=== PATIENT | male | born 1945 | race American Indian/Alaskan Native ===

== ENCOUNTER 2023-03-16 16:44 | Observation (INO) | payer OTHER, SELFPAY ==
[2023-03-16] VITALS (10 sets, daily range): BP systolic 130–141; BP diastolic 72–85; PULSE 63–71; RESP 15–22; TEMP 36.4–36.9; O2SAT 98–100; BMI 25.8
--- NOTE | 2023-03-16 16:49 | DI.RAD.S_ITS ---
PROCEDURE: XR RIBS RT MIN 3V W CXR 1V INDICATIONS: fall with posterior rib pain TECHNIQUE: Two views of the right ribs were acquired, along with a single view chest. COMPARISON: None. FINDINGS: Surgical changes and devices: None. Bones and chest wall: Mild displacement of right posterior ribs seven and eight. No subcutaneous emphysema. Lungs and pleura: Minimal hazy opacity at the right lung base, likely overlying soft tissue. Possible trace pleural effusion. No visible pneumothorax. Left lung is clear. There is asymmetric right hemidiaphragm elevation, probably due to splinting. Mediastinum: Mediastinal contours appear normal. Heart size is normal. IMPRESSION: 1. Probable right posterior 7th and 8th rib fractures. 2. Trace right pleural effusion is questionable. Dictated by: Lennie Thompson M.D. on 03/16/2023 at 17:16 Approved by: Lennie Thompson M.D. on 03/16/2023 at 17:18
[2023-03-16] MEDS: HYDROCODONE/ACET 5/325 TABLET 2 TAB PO (16:54)
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
--- NOTE | 2023-03-16 17:37 | DI.CT.S_ITS ---
PROCEDURE: CT CHEST ABD PEL W CON INDICATIONS: Trauma, multiple rib fractures TECHNIQUE: After the administration of intravenous contrast, 5 mm thick sections acquired from the lung apices to the symphysis. 2.5 mm thick coronal and sagittal reformats were acquired. Additional 7 mm thick coronal maximum intensity projection (MIP) reformats acquired through the lungs. Optional 10-minute delayed imaging may be performed from the kidneys to the bladder. For radiation dose reduction, the following was used: automated exposure control, adjustment of mA and/or kV according to patient size. COMPARISON: None. FINDINGS: Image quality: Excellent. CHEST: Lungs: No pulmonary contusions or lacerations. No acute airspace opacities. No pneumothorax or hemothorax. Central and peripheral airways appear patent and normal in caliber. Mediastinum: No mediastinal hematomas. Heart size is normal. No pericardial effusion. Thoracic aorta and pulmonary arteries demonstrate normal size and enhancement. No mediastinal or hilar adenopathy. Esophagus is normal in caliber. Small hiatal hernia. Chest wall: Right posterior 7th and 8th rib fractures as seen on plain film. Additional fractures include nondisplaced lateral right 5th, 6th rib arcs.. No subcutaneous emphysema. No axillary or supraclavicular adenopathy. Thyroid gland is normal. ABDOMEN: Solid organs: Liver is normal in size and enhancement, without lacerations. Gallbladder is normal. Biliary system is non-dilated. Pancreas enhances normally, without transection. Spleen is normal in size and enhancement, without lacerations. No adrenal hematomas. Both kidneys enhance symmetrically. There is a small amount of fluid inferior to the medial lower pole. An area of ill-defined corticomedullary differentiation present inferomedially is seen series 2, image 83. There is likely a small contusion. No subcapsular hematoma. No hydronephrosis or hydroureter. Peritoneum and bowel: No free fluid or air. Unenhanced bowel loops demonstrate normal wall thickness and caliber. No mesenteric hematoma or interloop fluid. Nodes and vessels: No retroperitoneal or mesenteric adenopathy. Aorta and inferior vena cava are normal in size and enhancement. Miscellaneous: Tiny fat containing umbilical hernia. PELVIS: Genitourinary: Intact urinary bladder without wall thickening. Prostatectomy changes. Penile prosthesis pump in the anterior left lower quadrant. Miscellaneous: No inguinal hernias or adenopathy. Bones: Pelvis and vertebral bodies are intact. There is partial ankylosis of sacroiliac joints. Moderate degenerative changes at both hip joints and multilevel endplate spurring throughout the spine. IMPRESSION: 1. Right lateral and posterior rib fractures five through eight. No evidence of underlying chest trauma. 2. Grade 1 right renal injury with small amount of probably nonhemorrhagic fluid. No subcapsular hematoma. No contrast extravasation. Dictated by: Lennie Thompson M.D. on 03/16/2023 at 17:41 Approved by: Lennie Thompson M.D. on 03/16/2023 at 17:57
[2023-03-16 17:57] LABS: Add Manual Diff / Slide Review NO; Basophils Absolute Auto 0 /uL (0-100); Basophils Percent Auto 0.2 % (0-2); Eosinophils Absolute Auto 100 /uL (0-450); Eosinophils Percent Auto 1.2 % (2-4); Hematocrit 38.3 % (41-53); Hemoglobin 13.3 g/dL (13.5-17.5); Lymphocytes Absolute Auto 800 /uL (1100-4500); Lymphocytes Percent Auto 8.8 % (25-40); Mean Corpuscular HGB Conc 34.9 % (30-36); Mean Corpuscular Hemoglobin 32.4 PG (26-34); Mean Corpuscular Volume 92.9 fL (80-100); Monocytes Absolute Auto 600 /uL (0-900); Monocytes Percent Auto 6.6 % (3-14); Neutrophils Absolute Auto 7800 /uL (1500-7000); Neutrophils Percent Auto 83.2 % (50-75); Platelet Count 223 X10^3/uL (150-400); Red Blood Cell Count 4.12 X10^6/uL (4.5-5.9); Red Cell Distribution Width 13.3 % (11.6-14.8); White Blood Cell Count 9.4 X10^3/uL (4.5-11.0)
[2023-03-16 18:09] LABS: INR 1.1 (0.9-1.3); Prothrombin Time 12.2 SECONDS (10.1-12.7)
[2023-03-16 18:11] LABS: Lactate (Lactic Acid) 1.2 mmol/L (0.7-2.1); PTT Partial Thromboplastin Tim 27 SECONDS (26-36)
[2023-03-16 18:14] LABS: Alanine Aminotransferase 31 IU/L (<50); Albumin 3.9 g/dL (3.5-5.0); Albumin Globulin Ratio 1.3 (1.0-2.8); Alkaline Phosphatase 92 U/L (38-126); Aspartate Aminotransferase 40 IU/L (17-59); BUN Creatinine Ratio 20.7 (6-22); Bilirubin Total 0.8 mg/dL (0.2-1.3); Blood Urea Nitrogen 17 mg/dL (9-20); Calcium 8.9 mg/dL (8.4-10.2); Carbon Dioxide 25 mmol/L (22-32); Chloride 103 mmol/L (98-107); Estimated Glomerular Filt Rate > 60 mL/min (>60); Ethanol (ETOH) < 10 mg/dL; Glucose 98 mg/dL (80-110); HEMOLYSIS < 15 (0-50); Lipase 82 U/L (23-300); Potassium 4.1 mmol/L (3.4-5.1); Sodium 135 mmol/L (137-145); Total Protein 6.9 g/dL (6.3-8.2)
--- NOTE | 2023-03-16 19:46 | PC.NURSE ---
RT teaching incentive teaching.
[2023-03-16 20:12] LABS: Ur Creatinine Normal (Normal); Ur Specific Gravity Normal (Normal); Urine pH Normal (Normal)
[2023-03-16 20:13] LABS: UR Morphine/Opiate cutoff 300 Negative (Negative); Urine Amphetamines Negative (Negative); Urine Barbiturates Negative (Negative); Urine Benzodiazepines Negative (Negative); Urine Cocaine Negative (Negative); Urine MDMA Negative (Negative); Urine Methadone Negative (Negative); Urine Methamphetamines Negative (Negative); Urine Oxycodone Negative (Negative); Urine Phencyclidine Negative (Negative); Urine Tetrahydrocannabinol Negative (Negative); Urine Tricyclic Antidepressant Negative (Negative)
[2023-03-16] MEDS: IBUPROFEN 600 MG TABLET PO (21:27)
[2023-03-16] MEDS: HYDROCODONE/ACET 5/325 TABLET 1 TAB PO (21:27)
[2023-03-17 02:40] VITALS: BP 102/63; PULSE 65; RESP 18; TEMP 36.6; O2SAT 98
[2023-03-17] MEDS: HYDROCODONE/ACET 5/325 TABLET 1 TAB PO ×4 (03:26→21:15)
[2023-03-17 07:46] VITALS: BP 126/78; PULSE 58; RESP 16; TEMP 36.6; O2SAT 97
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
[2023-03-17] MEDS: IBUPROFEN 600 MG TABLET PO ×2 (10:12→17:54)
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
[2023-03-17 10:24] LABS: Add Manual Diff / Slide Review NO; Basophils Absolute Auto 0 /uL (0-100); Basophils Percent Auto 0.3 % (0-2); Eosinophils Absolute Auto 200 /uL (0-450); Eosinophils Percent Auto 2.6 % (2-4); Hematocrit 37.1 % (41-53); Hemoglobin 12.8 g/dL (13.5-17.5); Lymphocytes Absolute Auto 1000 /uL (1100-4500); Lymphocytes Percent Auto 11.7 % (25-40); Mean Corpuscular HGB Conc 34.4 % (30-36); Mean Corpuscular Hemoglobin 32.2 PG (26-34); Mean Corpuscular Volume 93.6 fL (80-100); Monocytes Absolute Auto 700 /uL (0-900); Monocytes Percent Auto 8.3 % (3-14); Neutrophils Absolute Auto 6300 /uL (1500-7000); Neutrophils Percent Auto 77.1 % (50-75); Platelet Count 213 X10^3/uL (150-400); Red Blood Cell Count 3.97 X10^6/uL (4.5-5.9); White Blood Cell Count 8.1 X10^3/uL (4.5-11.0)
[2023-03-17 10:51] LABS: BUN Creatinine Ratio 20.9 (6-22); Blood Urea Nitrogen 19 mg/dL (9-20); Calcium 8.7 mg/dL (8.4-10.2); Carbon Dioxide 31 mmol/L (22-32); Chloride 100 mmol/L (98-107); Estimated Glomerular Filt Rate > 60 mL/min (>60); Glucose 95 mg/dL (80-110); HEMOLYSIS < 15 (0-50); Potassium 3.8 mmol/L (3.4-5.1); Sodium 136 mmol/L (137-145)
[2023-03-17] MEDS: PANTOPRAZOLE 40 MG VIAL IV (11:06)
[2023-03-17] MEDS: buPROPion XL 150 MG TAB 300 MG PO (11:06)
[2023-03-17] MEDS: KETOROLAC 30 MG/ML VIAL IV ×3 (11:06→22:26)
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
--- NOTE | 2023-03-17 13:25 | PC.NURSE ---
Day shift: Pt up with physical therapy in halls SBA. Pt pain well controlled with ordered pain medications, up to chair for lunch. VSS. A&Ox4. Pt was offered assistance to get back to bed to nap after lunch when pt found resting in chair with eyes closed. Pt stated, Would you just let me sleep? I need sleep. Pt left in chair with visual observation from nurse's station. Care ongoing, will continue to monitor.
[2023-03-17 16:25] VITALS: BP 113/68; PULSE 72; RESP 19; TEMP 36; O2SAT 97
[2023-03-17 20:00] VITALS: BP 117/74; PULSE 65; RESP 18; TEMP 36.4; O2SAT 97
[2023-03-17] MEDS: SODIUM CHLORIDE 0.9% FLUSH 10 ML IV (21:16)
[2023-03-18] MEDS: HYDROCODONE/ACET 5/325 TABLET 1 TAB PO ×2 (02:31→09:30)
[2023-03-18 04:00] VITALS: BP 108/56; PULSE 60; RESP 16; TEMP 36.4; O2SAT 96
[2023-03-18] MEDS: KETOROLAC 30 MG/ML VIAL IV ×2 (04:37→09:57)
[2023-03-18] MEDS: SODIUM CHLORIDE 0.9% FLUSH 10 ML IV ×2 (04:38→09:31)
--- NOTE | 2023-03-18 09:10 | PT.IPTN ---
Current Diagnoses Fracture of one rib, right side, initial encounter for closed fracture (03/16/23) Physical Therapy Treatment Note M2 PT-IP Current Condition Start: 03/17/23 10:48 Freq: NEEDED Status: Active Protocol: Document 03/17/23 12:00 AW (Rec: 03/17/23 13:56 AW [id number]) Physical Therapy Current Condition Current Condition Evaluation Date 03/17/23 Treatment Diagnosis fall; R posterolateral rib fx affecting mobility Onset Date 03/16/23 M3 PT-IP Subjective Start: 03/17/23 10:48 Freq: NEEDED Status: Active Protocol: Document 03/18/23 09:41 TS (Rec: 03/18/23 10:09 TS [id number]) Subjective Physical Therapy Visit Type Type Treatment Note Visit Start Time 09:10 Visit Stop Time 09:31 Total Visit Minutes 21 Physical Therapy Visit Comments Patient Comments Pt reports pain is 0/10 at rest, increases to 7/10 with mobility, agreeable to PT. Patient Goals Return home with family support Therapy Pain Assessment Pain When Pain Assessed During Mobility Pain Present Pain Present Pain Reported Location R post chest wall Intensity 7 Scale Used Numeric (0 - 10) Description With Movement Pain Behaviors Facial Grimacing,Guarding, Moaning,Wincing Pain Management Techniques Modification of Treatment,Re- positioning,Timing of Activity with Medications M4 PT-IP Mobility and Gait Start: 03/17/23 10:48 Freq: NEEDED Status: Active Protocol: Document 03/18/23 09:41 TS (Rec: 03/18/23 10:09 TS [id number]) PT-Bed Mobility Assessment Supine to Sit Supine to Sit Standby Assistance,1 Person Assistance Sit to Supine Sit to Supine Standby Assistance Scooting Scooting to Edge of Bed Standby Assistance Scooting Up and Down in Bed Standby Assistance PT-Transfer Assessment Sit to and From Stand Sit to and from Stand Standby Assistance,Contact Guard Assistance Equipment Transfer Assistive Device None,Gait Belt Orthotic/Prosthetic Devices or Brace: No Comments Mobility Comments Pt found resting in bed, agreeable to PT. Supine to sit HOB elevated 15D SBA with LUE support, pain increases with use of RUE. Sit to stand x1 no AD SBA, pt bracing back of legs against bed for initial balance. Pt ambulated ~350' no AD SBA with flexed posture and flexed knees, pt with some swaying and x1 buckling due to increase pain in R ribs, no assist needed. He performed stairs x6 ascending/descending with single rail use CGA/SBA, initial first step pt buckled again due to pain and required CGA for balance. Pt ambulated with FWW ~50' SBA, balance improved with AD. Sit to supine to bed SBA with LUE support. Pt was left in bed with call light nearby, RN in room. Gait Assessment Gait Gait Assistance Required: Standby Assistance Distance (Feet) 400 Assistive Devices Assistive Device None,Gait Belt,Front Wheeled Walker Orthotic/Prosthetic Devices or Brace: No Gait Deviations General Gait Pattern Antalgic,Wide Based Gait Factors Limiting Gait Function Factors Limiting Gait Function Pain Comments Gait Comments See mobility comments. Stair Climbing Assessment Evaluation Level of Assist On Stairs Standby Assistance,Contact Guard Assistance Devices Stair Climbing Assistive Devices Right Railing Technique/Endurance Stair Climbing Direction Ascend and Descend Stair Climbing Technique Step to Step Number of Steps Climbed 6 Comments Stair Climbing Comments See mobility comments. PT-Balance Assessment Sitting Balance and Reactions Static Sitting Balance Ability Normal Dynamic Sitting Balance Ability Good Standing Balance and Reactions Static Standing Balance Ability Good Dynamic Standing Balance Ability Good Device Used no AD M5 PT-IP Objective Assessments Start: 03/17/23 10:48 Freq: NEEDED Status: Active Protocol: Document 03/17/23 12:00 AW (Rec: 03/17/23 13:56 AW [id number]) Orientation Orientation/Cognition Level of Alertness Alert Orientation Name,Date,Place,Situation Language Function Ability No Deficits Noted Safety Awareness Understands Safety Issues Gross Range of Motion Upper Extremity ROM Assessment Right Impaired Lower Extremity ROM Assessment Within Functional Limits Strength Upper Extremity Strength Assessment Right Impaired Lower Extremity Strength Assessment Right Impaired Hip 4/5 Knee 4+/5 Ankle 5/5 Comments Strength Comments LLE grossly 5/5 Sensation Assessment Sensation Gross Sensation Right LE Impaired,Left LE Impaired Light Touch Impaired Proprioception (Position) Impaired Comments Sensation Comments 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 M6 PT-IP Treatment Start: 03/17/23 10:48 Freq: NEEDED Status: Active Protocol: Document 03/18/23 09:41 TS (Rec: 03/18/23 10:09 TS [id number]) Physical Therapy Treatment Education Education Provided Safety M7 PT-IP Assessment and Plan Start: 03/17/23 10:48 Freq: NEEDED Status: Active Protocol: Document 03/18/23 09:41 TS (Rec: 03/18/23 10:09 TS [id number]) PT Summary Assessment and Plan Potential Rehabilitation Potential Good Summary Impairments Pain,ROM,Strength,Bed Mobility ,Transfers Progress Towards Goals Progressing Toward Goals Assessment Summary Omi continues to progress well with his mobility. He is SBA for all bed mobility with use of LUE for support, due to pain he requires decreased use of RUE. He is SBA for sit to stands with no AD and progressed his ambulation to 350' SBA with no AD and 50' with FWW. Pt demonstrates some swaying/unsteadiness without FWW, recommended use of FWW at home for improved balance. He performed stairs x6 with LUE handraill assist, pt with [id number] due to increase pain in R side. PT recommends home with assist from family and outpatient therapy for improving balance. Goals Bed Mobility Goal Independent Transfer Goal Independent Gait Goal Independent Gait Distance 200 Other Goals -up/down 8 steps with unilateral rail Days to Meet Goals 2 Frequency of Treatment Frequency Of Treatment Once a Day Treatment Plan Physical Therapy Treatment Plan Bed Mobility Training,Transfer Training,Gait Training, Therapeutic Exercise,Discharge Planning,Hot or Cold Pack Other Recommendations and Next Treatment Continue gait, stairs and Focus balance training. Recommendations To Nursing Amount of Assist Needed Standby Assistance Discharge Recommendations PT Discharge Recommendations Home with Assistance, Outpatient PT Transportation Needs at Discharge Private Vehicle
[2023-03-18] MEDS: ACETAMINOPHEN 325 MG TABLET 650 MG PO (09:29)
[2023-03-18] MEDS: PANTOPRAZOLE 40 MG VIAL IV (09:31)
[2023-03-18] MEDS: buPROPion XL 150 MG TAB 300 MG PO (09:57)
--- NOTE | 2023-03-18 10:50 | PM.PN.1 ---
Subjective Subjective Date Patient Seen: 03/18/23 Time Patient Seen: 10:50 Interval history: Feeling better today. Has been up and walking around with therapy. Wants to go home. Exam Vital Signs (past 8 hours): - 03/18/23 04:00 Temperature 97.6 F Pulse Rate 60 Respiratory Rate 16 Blood Pressure 108/56 L Pulse Oximetry 96 Oxygen Delivery Method Room Air Oxygen Flow Rate 0 Const General: No acute distress Objective Labs 03/17/23 10:15 03/17/23 10:15 Labs: Laboratory Results - last 24 hr 03/17/23 10:15 Sodium 136 L Potassium 3.8 Chloride 100 Carbon Dioxide 31 BUN 19 Creatinine 0.91 Estimated GFR > 60 BUN/Creatinine Ratio 20.9 Glucose 95 Calcium 8.7 PFSH Medical History (Updated 03/17/23 @ 10:21 by Les Whatley MD) Urethral valve, acquired Social History household members: family and children Smoking Status: Former smoker Assessment & Plan Assessment and plan (1) Right rib fracture: Status: Acute Plan Plan for home today if pain is controlled with oral pain medications alone Quality VTE Deep Vein Thrombosis/Pulmonary Embolism Present on Admission: No
[2023-03-18 12:00] VITALS: BP 119/69; PULSE 60; RESP 18; TEMP 36.3; O2SAT 99
--- NOTE | 2023-03-18 13:09 | CM.DPNOTE ---
Discharge Planning Note: Patient lives in [place] with Dtr and Son in law. Very active/independent at baseline. PT recommends outpatient PT on discharge. Dr Whatley's note this morning states he may discharge today. Nurse Dudley states he will leave about 2 pm today. Plan: Patient will return to previous living arrangement. Family to provide transportation. Per PT daughter to obtain FWW for balance issues. Ammy Saez RN/DCP
--- NOTE | 2023-03-18 16:16 | PC.NURSE ---
Discharge: Pt feels ready to d/c to home. Does have some help when he get there. MD here and gave d/c instructions. Pt worked with PT today and they gave d/c instructions. Dtr is picking him up a walker. Pain is in control per pt with vicodin. Vds w/out diff. Is tolerating diet w/out problems. Discharge packet given and reviewed. Questions answered. Pt d/c to home via auto w/friend.
== END 2023-03-18 14:52 | disposition home or self-care (01) ==
LOC: ED 19:38 → AC 19:42
PROVIDERS: Emergency Medicine; Admitting Provider Surgery; Emergency Provider Emergency Medicine; PCP Internal Medicine; Referring Provider Emergency Medicine; Visit Provider Surgery
DX: S22.41XA Multiple fractures of ribs, right side, initial encounter for closed fracture (principal); S37.031A Laceration of right kidney, unspecified degree, initial encounter; W01.0XXA Fall on same level from slipping, tripping and stumbling without subsequent striking against object, initial encounter; Y92.89 Other specified places as the place of occurrence of the external cause
CPT/HCPCS: 36415; 71101; 71260; 74177; 80048; 80053; 80305; 80320; 83605; 83690; 85025; 85610; 85730; 86850; 86900; 86901; 93005; 93010; 96374; 96375; 96376; 97116; 97161; 97165; 97535; 99221; 99238; 99284; G0378; C9113; J1885; Q9967